=== PATIENT | female | born 1945 | race Caucasian/White ===

== ENCOUNTER 2017-08-09 11:26 | Outpatient (CLI) | payer MEDICARE ==
--- NOTE | 2017-08-09 15:32 | MMO ---
BILATERAL DIGITAL SCREENING MAMMOGRAMS: HISTORY: A 71-year-old female who presents for digital screening mammography. COMPARISON: 04/26/16, 12/18/14, 11/07/13, 10/11/12, 08/06/11. This patient's mammogram is interpreted with the assistance of computer-aided detection. The breasts are heterogeneously dense which can obscure small masses. There is an occasional typical ly benign calcification. Appearance is stable. IMPRESSION: BI-RADS category 2, benign findings. Continued routine screening. POS: [facility]
== END 2017-08-09 11:27 | disposition home or self-care (01) ==
LOC: SCSMAMMO 11:26
PROVIDERS: ATTEND Obstetrics & Gynecology
DX: Z12.31 Encounter for screening mammogram for malignant neoplasm of breast (principal)
CPT/HCPCS: 77067; G0202

== ENCOUNTER 2020-11-24 09:30 | Outpatient (CLI) | payer MEDICARE, OTHER ==
[2020-11-24] MEDS ORDERED: Iopamidol-370 76% 500 ML 1 ML ONE (11:03)
== END 2020-11-24 09:31 | disposition home or self-care (01) ==
LOC: BICCT 09:30
PROVIDERS: ATTEND Internal Medicine Gastroenterology
DX: K57.30 Diverticulosis of large intestine without perforation or abscess without bleeding (principal); R10.31 Right lower quadrant pain
CPT/HCPCS: 74177; 82565; Q9967